=== PATIENT | male | born 1985 | race Caucasian/White ===

== ENCOUNTER 2017-01-11 13:21 | Emergency (ER) | payer OTHER ==
[2017-01-11 13:50] VITALS: BP 173/79; PULSE 86; RESP 20; TEMP 99
--- NOTE | 2017-01-11 14:26 | ED ---
Eye Problem HPI - General Chief complaint: Eye Problems Stated complaint: Eye problem Time Seen by Provider: 01/11/17 14:14 Source: patient, RN notes reviewed Mode of arrival: ambulatory Limitations: no limitations - History of Present Illness Initial comments: 31-year-old male presents to the emergency Department chief complaint of right eye irritation. Patient states it started yesterday after his dog scratched his eye. Patient states it feels better than yesterday be still having some irritation. Patient denies any redness or purulent type drainage. Patient states his vision is somewhat blurry. Patient states she was concerned due to the continued eye pain. Patient states that he should be evaluated. Patient denies any recent fever, chills, shortness of breath, chest pain, back pain, abdominal pain, nausea vomiting, numbness or tingling, dysuria or hematuria, constipation or diarrhea, headaches, or any other current symptoms. - Related Data Previous Rx's Medication Instructions Recorded Tobramycin 0.3% Ophth Soln [Tobrex 1 drop RIGHT EYE Q4H 5 Days 01/11/17 0.3% Ophth Soln] Allergies Allergy/AdvReac Type Severity Reaction Status Date / Time acetaminophen Allergy Unknown Verified 01/11/17 13:50 [From Tylenol-Codeine #3] codeine Allergy Unknown Verified 01/11/17 13:50 [From Tylenol-Codeine #3] Review of Systems ROS Statement: Those systems with pertinent positive or pertinent negative responses have been documented in the HPI. ROS Other: All systems not noted in ROS Statement are negative. Past Medical History Past Medical History: No Reported History History of Any Multi-Drug Resistant Organisms: None Reported Past Surgical History: No Surgical Hx Reported Past Psychological History: No Psychological Hx Reported Smoking Status: Never smoker Past Alcohol Use History: None Reported Past Drug Use History: None Reported General Exam Limitations: no limitations General appearance: alert, in no apparent distress Head exam: Present: atraumatic, normocephalic, normal inspection Expanded Eyelids: Normal Inspection: Bilateral Pupils: Regular, Round: Bilateral Sclera/Conjunctival: Normal Inspection: Bilateral Anterior chamber: Normal Inspection: Bilateral ENT exam: Present: normal exam, mucous membranes moist Neck exam: Present: normal inspection. Absent: tenderness, meningismus, lymphadenopathy Respiratory exam: Present: normal lung sounds bilaterally. Absent: respiratory distress, wheezes, rales, rhonchi, stridor Cardiovascular Exam: Present: regular rate, normal rhythm, normal heart sounds. Absent: systolic murmur, diastolic murmur, rubs, gallop, clicks Neurological exam: Present: alert, oriented X3, CN II-XII intact. Absent: motor sensory deficit Psychiatric exam: Present: normal affect, normal mood Skin exam: Present: warm, dry, intact, normal color. Absent: rash Course Vital Signs 01/11/17 13:48 Temperature 99.0 F Pulse Rate 86 Respiratory 20 Rate Blood Pressure 173/79 O2 Sat by Pulse 99 Oximetry Medical Decision Making - Medical Decision Making 31-year-old male presents with what appears to be a corneal abrasion. Patient underwent a with lamp examination that does show corneal abrasion. This time we 'll start him on tobramycin. We discussed follow-up with ophthalmology given information return parameters. Patient stated that he understood and all his questions have been answered. The patient will be discharged home. Disposition Clinical Impression: Corneal abrasion, right Disposition: HOME SELF-CARE Condition: Stable Instructions: Corneal Abrasion (ED) Additional Instructions: Please use medication as discussed. Please follow up with family doctor if symptoms have not improved over the next two days. Please return to the emergency room if your symptoms increase or worsen or for any other concerns. Prescriptions: Tobramycin 0.3% Ophth Soln [Tobrex 0.3% Ophth Soln] 1 drop RIGHT EYE Q4H 5 Days Referrals: Nonstaff,Physician [Primary Care Provider] - 1-2 days Nancy Lawrence MD [STAFF PHYSICIAN] - 1-2 days Time of Disposition: 14:26
== END 2017-01-11 14:20 | disposition home or self-care (01) ==
LOC: EC 13:21
DX: S05.01XA Injury of conjunctiva and corneal abrasion without foreign body, right eye, initial encounter (principal); Z88.5 Allergy status to narcotic agent; Z88.6 Allergy status to analgesic agent; W54.8XXA Other contact with dog, initial encounter
CPT/HCPCS: 99283